=== PATIENT | male | born 1955 | race Caucasian/White ===

== ENCOUNTER 2016-11-29 14:09 | Emergency (ER) | payer SELFPAY ==
--- NOTE | 2016-11-29 15:01 | DIAGNOSTIC IMAGING REPORT ---
PROCEDURE: XR CHEST 2 VIEW INDICATION: SOB TECHNIQUE: PA and lateral views. COMPARISON: None. FINDINGS: Extensive bibasilar infiltrates. Heart and mediastinum are normal. Thorax is normal. IMPRESSION: 1. Diffuse bibasilar infiltrates.
--- NOTE | 2016-11-29 16:37 | DIAGNOSTIC IMAGING REPORT ---
PROCEDURE: CTA THORAX WITH CONTRAST INDICATION: SOB, ELEVATED D-DIMER TECHNIQUE: 96 ml of Isovue 370 was injected intravenously and axial images were obtained of the chest with 3D sagittal and coronal MIP reconstructions. COMPARISON: None. FINDINGS: The ascending aorta is of normal caliber. There is a [place] type B aortic dissection originating immediately distal to the left subclavian artery origin. The dissection continues into the upper abdomen and a dissection flap is seen coursing down the proximal aspect of the right renal artery. The left renal artery origin arises from the false lumen. The celiac trunk and superior mesenteric arteries arise from the true lumen. The pulmonary arteries are grossly normal in course and caliber without evidence of central thrombus. There is trace pericardial thickening. The heart size is within normal limits. No significant effusion. There are mildly enlarged mediastinal lymph nodes in the AP window, pretracheal, precarinal, subcarinal, and right hilar regions. The airway is patent and branches normally. Lung parenchyma demonstrates a diffusely thickened interstitium and multifocal patchy ground-glass alveolar opacities, mainly centralized. These findings are superimposed on tiny parenchymal central lobular cystic/emphysematous changes. There is thickening of the fissures bilaterally. Very small posteromedial layering pleural effusions. The liver size is at the upper limits of normal and contains multiple small scattered hypodensities in both lobes, incompletely evaluated. No suspicious osseous lesions. IMPRESSION: 1. [place] type B aortic dissection. The distal extent was not imaged. Correlate clinically with femoral pulses. 2. Dissection extends into the proximal right renal artery. Left renal artery origin arises from the false lumen. 3. Extensive bilateral upper and lower lobe centralized ground-glass parenchymal opacities and diffuse thickening of the interstitium suggestive of interstitial and pulmonary edema. Trace bilateral effusion. 4. Mediastinal and right hilar adenopathy. 5. No large central pulmonary embolus. 6. Mild emphysema. 7. Multiple small hepatic hypodensities, incompletely evaluated. 8. Discussed with Dr. Sharma in the emergency room.
--- NOTE | 2016-11-29 16:57 | ED ORDER SUMMARY ---
..... Patient: ROB PIERCE OrderSheet [facility] VisitID: [id number] Casey Montes [id number] 61y, M Registration Date/Time: 11/29/2016 ORDER SHEET Weight: 102.0 kg (stated) Allergies: No Known Drug Allergy GENERAL ORDERS: Chest 2V Urgent (14:36 11/29/2016 Mars Stewart) (Ack 14:42 Wendy) (14:55 EHassan R.N.) Nuclear Test Technician (Continuous) (SOB) (14:36 11/29/2016 Mars Stewart) (14:41 EHstacyn R.N.) CBC w Diff Urgent (14:36 11/29/2016 Mars Stewart) (Ack 14:42 Wendy) (14:55 EHmarixa R.N.) CMP Urgent (14:36 11/29/2016 Mars Stewart) (Ack 14:42 Wendy) (14:55 EHstacyn R.N.) PT with INR Urgent (14:36 11/29/2016 Mars Stewart) (Ack 14:42 Wendy) (14:55 Hal R.N.) UA-Culture if indicated Urgent (14:36 11/29/2016 Mars Stewart) (Ack 14:42 Wendy) (16:50 Pierce R.N.) D-Dimer Urgent (14:36 11/29/2016 Mars Stewart) (Ack 14:42 Wendy) (14:55 Edilsonn R.N.) Troponin-I Urgent (14:36 11/29/2016 Mars Stewart) (Ack 14:42 Wendy) (14:55 Hal R.N.) BNP Urgent (14:36 11/29/2016 Mars Stewart) (Ack 14:42 Wendy) (14:55 EHassan R.N.) Pulse oximeter (14:36 11/29/2016 Mars Stewart) (14:41 EHmarixa R.N.) Blood Culture (No) (N/A) Urgent (15:05 11/29/2016 Mars Stewart) (Ack 15:25 KHoerner) (15:27 KHoerner) Lactate, Serum Urgent (15:05 11/29/2016 Mars Stewart) (Ack 15:25 KHoerner) (15:27 KHoerner) PCT (Procalcitonin) Urgent (15:05 11/29/2016 Mars Stewart) (Ack 15:25 KHoerner) (15:27 KHoerner) CTA Thorax w Cont (No) (gfr > 60) Urgent (15:31 11/29/2016 Mars Stewart) (Ack 15:33 KHoerner) (16:15 MCampbell) Type & Screen Urgent (16:10 11/29/2016 Mars Stewart) (Ack 16:19 KHoerner) (17:58 EHassan R.N.) MEDICATION ORDERS: DuoNeb Neb Tx 1 unit dose (NOW) (14:36 11/29/2016 Mars Stewart) (14:49 MNance) NitroGLYCERIN SL 0.4 mg (once now) (15:06 11/29/2016 Mars Stewart) (15:29 KPachester-Deangelo R.N.) IV FLUIDS: Labetalol IV 20 mg (HIGH ALERT MEDICATION, NOW) (14:36 11/29/2016 Mars Stewart) (14:56 EHassan R.N.) (Cancelled: not [id number] Mars Stewart) IV Saline Lock (14:36 11/29/2016 Mars Stewart) (15:06 EHassan R.N.) Morphine IV 4 mg (HIGH ALERT MEDICATION, NOW) (15:32 11/29/2016 Mars Stewart) (15:50 EHassan R.N.) Labetalol IV 20 mg (HIGH ALERT MEDICATION, NOW) (16:03 11/29/2016 Mars Stewart) (16:24 KPaRebecca R.N.) Labetalol IV 2 mg/min (now, continuous. may titrate up to 8 mg min max. goal SBP 120 - 100) (16:37 11/29/2016 Mars Stewart) (Cancelled: Other17:58 EHassan R.N.) Esmolol Drip IV : initial bolus 500 mcg/kg, then 50 mcg/kg/min for as long as needed (NOW, TITRATE) (max drip 300 mcg/kg/min) (16:54 11/29/2016 Mars Stewart) (18:09 Hal Clark) ORDER SHEET NOTES: [Electronically signed by Radha Smith R.N. (18:37 11/29/2016)] [Electronically signed by Jovon Sharma Dr. (12:25 11/30/2016)] [Electronically locked/signed by Radha Smith R.N. (18:37 11/29/2016)]
--- NOTE | 2016-11-29 16:57 | ED ORDER SUMMARY ---
..... Patient: ROB PIERCE OrderSheet [facility] VisitID: [id number] [place] [address] 61y, M Registration Date/Time: 11/29/2016 ORDER SHEET Weight: 102.0 kg (stated) Allergies: No Known Drug Allergy GENERAL ORDERS: Chest 2V Urgent (14:36 11/29/2016 Mars Stewart) (Ack 14:42 Wendy) (14:55 EHassan R.N.) Emergency Medcl Emt (Continuous) (SOB) (14:36 11/29/2016 Mars Stewart) (14:41 EHstacyn R.N.) CBC w Diff Urgent (14:36 11/29/2016 Mars Stewart) (Ack 14:42 Wendy) (14:55 EHmarixa R.N.) CMP Urgent (14:36 11/29/2016 Mars Stewart) (Ack 14:42 Wendy) (14:55 EHstacyn R.N.) PT with INR Urgent (14:36 11/29/2016 Mars Stewart) (Ack 14:42 Wendy) (14:55 Hal R.N.) UA-Culture if indicated Urgent (14:36 11/29/2016 Mars Stewart) (Ack 14:42 Wendy) (16:50 Pierce R.N.) D-Dimer Urgent (14:36 11/29/2016 Mars Stewart) (Ack 14:42 Wendy) (14:55 Edilsonn R.N.) Troponin-I Urgent (14:36 11/29/2016 Mars Stewart) (Ack 14:42 Wendy) (14:55 Hal R.N.) BNP Urgent (14:36 11/29/2016 Mars Stewart) (Ack 14:42 Wendy) (14:55 EHassan R.N.) Pulse oximeter (14:36 11/29/2016 Mars Stewart) (14:41 EHmarixa R.N.) Blood Culture (No) (N/A) Urgent (15:05 11/29/2016 Mars Stewart) (Ack 15:25 KHoerner) (15:27 KHoerner) Lactate, Serum Urgent (15:05 11/29/2016 Mars Stewart) (Ack 15:25 KHoerner) (15:27 KHoerner) PCT (Procalcitonin) Urgent (15:05 11/29/2016 Mars Stewart) (Ack 15:25 KHoerner) (15:27 KHoerner) CTA Thorax w Cont (No) (gfr > 60) Urgent (15:31 11/29/2016 Mars Stewart) (Ack 15:33 KHoerner) (16:15 MCampbell) Type & Screen Urgent (16:10 11/29/2016 Mars Stewart) (Ack 16:19 KHoerner) (17:58 EHassan R.N.) MEDICATION ORDERS: DuoNeb Neb Tx 1 unit dose (NOW) (14:36 11/29/2016 Mars Stewart) (14:49 MNance) NitroGLYCERIN SL 0.4 mg (once now) (15:06 11/29/2016 Mars Stewart) (15:29 KPachester-Deangelo R.N.) IV FLUIDS: Labetalol IV 20 mg (HIGH ALERT MEDICATION, NOW) (14:36 11/29/2016 Mars Stewart) (14:56 EHassan R.N.) (Cancelled: not [id number]:54 Mars Stewart) IV Saline Lock (14:36 11/29/2016 Mars Stewart) (15:06 EHassan R.N.) Morphine IV 4 mg (HIGH ALERT MEDICATION, NOW) (15:32 11/29/2016 Mars Stewart) (15:50 EHassan R.N.) Labetalol IV 20 mg (HIGH ALERT MEDICATION, NOW) (16:03 11/29/2016 Mars Stewart) (16:24 KPaRebecca R.N.) Labetalol IV 2 mg/min (now, continuous. may titrate up to 8 mg min max. goal SBP 120 - 100) (16:37 11/29/2016 Mars Stewart) (Cancelled: Other17:58 EHassan R.N.) Esmolol Drip IV : initial bolus 500 mcg/kg, then 50 mcg/kg/min for as long as needed (NOW, TITRATE) (max drip 300 mcg/kg/min) (16:54 11/29/2016 Mars Stewart) (18:09 Hal Clark) ORDER SHEET NOTES: [Electronically signed by Radha Smith R.N. (18:37 11/29/2016)] [Electronically signed by Jovon Sharma Dr. (12:25 11/30/2016)] [Electronically locked/signed by Radha Smith R.N. (18:37 11/29/2016)]
--- NOTE | 2016-11-29 16:57 | ED NURSING NOTES ---
Clinical Report - Nurses [facility] [address] [place] [address] 11/29/2016 14:12 Patient: ROB PIERCE TRIAGE Triage time 1415 PM. Acuity: LEVEL 2. Chief Complaint: DIZZINESS, WEAKNESS, DIARRHEA and ABDOMINAL PAIN. Alert. No acute distress. JEFFREY COMA SCORE: [place] Coma Scale: 15- eyes open spontaneously (4); best verbal response- oriented x 4 (5); best motor response- obeys commands (6). --14:33 Radha Smith R.N. 14:18 11/29/16. BP: 205/128 (regular adult cuff) taken on the left arm, via an automated monitor, while lying. HR: 111. RR: 14. O2 saturation: 95% on room air. Pain level now: 01/04. --14:33 Radha Smith R.N. late entry - 14:18 PM. --18:37 Radha Smith R.N. 14:18 11/29/16. Temp: 98.2 F (oral). --18:37 Radha Smith R.N. Weight: 102 kg stated. Height/Length: 69 inches Per Patient. BMI: 33.2. --14:17 Radha Smith R.N. Medications None. --18:35 Radha Smith R.N. Medication/allergy information source: the patient. --14:33 Radha Smith R.N. Allergies No Known Drug Allergy. --18:35 Radha Smith R.N. History Arrived by private vehicle. Historian: patient. Accompanied by family. Primary physician (none). ( Pt states for the past couple of days approximately 3 days has been SOB on exertion and also while resting, pt also states that has felt his heart racing and the feeling of "passing out" with exertion (while putting on his shirt). Pt has not been to the doctor in a very "long time". Here for evaluation). Onset. (3 days). He has had fever, weakness, a cough and difficulty breathing. Denies muscle aches. No skin rash. 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 PAST MEDICAL HX: Immunizations: status is unknown. SOCIAL HX: Light tobacco smoker (cigarette)- less than 1/2 a pack per day. Alcohol use. Patient is a recovering alcoholic. (in 1985). History of drug use: marijuana. Is a recovering addict. (1 months). No infectious disease exposure. ABUSE ASSESSMENT: No report of abuse. SELF HARM ASSESSMENT: A self harm assessment was performed. The patient answered "no" to the question "Do you have thoughts of harming or killing yourself?" and "Have you recently had thoughts about harming or killing others?". FALL RISK ASSESSMENT: Fall risk assessment completed. No fall risk identified. NUTRITIONAL RISK ASSESSMENT: The nutritional risk assessment revealed no deficiencies. FUNCTIONAL ASSESSMENT: Functional assessment: no impairments noted. LEARNING NEEDS ASSESSMENT: The learning needs assessment revealed no barriers. SKIN INTEGRITY ASSESSMENT: Skin integrity risk assessment completed. No skin integrity risk identified. --14:33 Radha Smith R.N. 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 Gastroesophageal Reflux Disease. Back Pain. --14:22 Radha Smith R.N. ADDITIONAL SURGERIES: no known surgeries. Interventions ID band on patient. --14:33 Radha Smith R.N. PHYSICAL ASSESSMENT Ambulatory to room. GENERAL / NEURO / PSYCH: Alert. Oriented X 4. Appears in no acute distress. HEENT: Pupils equal, round and reactive to light. No facial asymmetry noted. Mucous membranes are pink. RESPIRATORY: Respirations not labored. Decreased breath sounds in the bases bilaterally. Inspiratory bilateral wheezes in the bases. CVS: Capillary refill less than 2 seconds. Pulses within normal limits. GI / : Abdomen soft and nontender and normal bowel sounds. SKIN: Skin intact. Skin is warm and dry. Normal skin turgor. --14:33 Radha Smith R.N. NURSING PROGRESS NOTES 14:24 11/29/2016 Site #1 started via IV in the left antecubital space with an 18g angiocath. Blood drawn: rainbow set. Labeled in the presence of the patient. --14:35 Radha Smith R.N. 14:33 11/29/16. BP: 196/122. HR: 104. RR: 19 (regular and labored). O2 saturation: 91%. Temp: 98.5 F (oral). Pain level now: 01/04. --14:35 Radha Smith R.N. Cardiac rhythm: sinus tachycardia. The initial plan of care for this patient has been created This plan of care was discussed with the patient. shelter monitor, pulse oximeter and NIBP monitor placed on patient. EKG time: (1430 PM). Patient ID band checked for patient name, birthdate and medical record number: patient confirmed. Blood samples drawn from the left antecubital space peripheral IV site by nurse per protocol ; labeled in presence of the patient: rainbow set. Patient gowned. Head of bed elevated 45 degrees. Reassurance given. Two patient identifiers checked. Call light placed in reach. Side rails up x 1. Bed placed in lowest position. Brakes of bed on. --14:35 Radha Smith R.N. 14:49 11/29/2016 Duoneb (Ipratropium-Albuterol) Neb TX Nebulizer 1 unit dose given. --14:49 Braulio Davis 14:56 11/29/2016 Labetalol IVP 20 mg given over 5 minute(s) via site #1. Allergies verified and confirmed 5 rights. IV patency established. IV site checked: no pain, redness, or swelling. IV flushed thoroughly pre- and post-medication administration. IVP given by RN. --14:56 Radha Smith R.N. 14:56 11/29/16. BP: 190/108. HR: 108. RR: 18. O2 saturation: 95% on room air. Pain level now: 01/04. --14:59 Radha Smith R.N. Cardiac rhythm: sinus tachycardia. shelter monitor, pulse oximeter and NIBP monitor placed on patient. Reassurance given. Reassessment after medication administered. He has had no adverse reaction. RESPIRATORY: Breath sounds normal. CVS: Denies chest pain. Normal sinus rhythm noted. Cardiac rhythm: sinus tachycardia. SKIN: Skin is warm and dry. Skin color within normal limits. Two patient identifiers checked. Call light placed in reach. --14:59 Radha Smith R.N. 15:00 11/29/16. BP: 181/103. HR: 84. RR: 16. O2 saturation: 92% on room air. Pain level now: 02/04. --15:01 Radha Smith R.N. Cardiac rhythm: normal sinus rhythm. The patient has had no adverse reaction. RESPIRATORY: Denies difficulty breathing. CVS: Denies chest pain. --15:01 Radha Smith R.N. 15:03 11/29/16. BP: 174/107 (regular adult cuff) taken on the left arm, via an automated monitor, while lying. HR: 79. RR: 18. O2 saturation: 88% on room air. Pain level now: 02/04. Additional comments: placed on O2. --15:04 Radha Smith R.N. Cardiac rhythm: normal sinus rhythm. Oxygen administered by nasal cannula at 2 liters. Monitoring of patient in place. Reassurance given. The patient has had no adverse reaction. Patient identifiers checked. Call light placed in reach. --15:04 Radha Smith R.N. Cardiac rhythm: normal sinus rhythm. --15:05 Radha Smith R.N. 15:05 11/29/16. BP: 167/103 taken on the left arm, via an automated monitor, while lying. HR: 77 (regular). RR: 14. O2 saturation: 93%. Pain level now: 02/04. --15:05 Radha Smith R.N. 15:08 11/29/2016 Labetalol IVP Response: no adverse reaction. --15:08 Radha Smith R.N. 15:19 11/29/2016 Nitroglycerin SL Tablets 0.4 mg given. Allergies verified and confirmed 5 rights. --15:29 Patricio Mendoza R.N. Blood samples drawn from the right hand with 23g butterfly: blood culture (2nd set). --15:39 Lia Deleon ER Tech1 ( pt to CT with tech, on O2, family at bedside,). --15:49 Patricio Mendoza R.N. 15:40 11/29/2016 Morphine IVP 4 mg given over 2 minute(s) via site #1. Allergies verified, confirmed 5 rights and sedative warning given to the patient. IV patency established. IV site checked: no pain, redness, or swelling. IV flushed thoroughly pre- and post-medication administration. IVP given by RN. --15:50 Radha Smith R.N. 16:05 11/29/16. BP: 184/121. HR: 93. RR: 19. O2 saturation: 89%. End tidal CO2: 21mmHg. Pain level now 0/10. --16:11 Patricio Mendoza R.N. Cardiac rhythm: normal sinus rhythm. shelter monitor, pulse oximeter, end tidal CO2 monitor and NIBP monitor placed on patient; cardiac tech- Lead II and V5; monitor alarms on. ( pt moved to room one after CT, MD at bedside explaining results of CT, that plan will be to transfer pt out to another facility. 2nd line being established, pt remaining on monitor, family also at bedside, pt in SR in the 90's on the monitor,). --16:11 Patricio Mendoza R.N. 16:18 11/29/16. BP: 186/124. HR: 98. --16:20 Patricio Mendoza R.N. ( labetalol being given ivp by Tessa ROTH, pt being 1:1 minimum RN to PT, S/O calling pts family to notify them). --16:20 Patricio Mendoza R.N. Cardiac rhythm: no ectopy noted (SR no ectopy noted at this time on monitor). --16:20 Patricio Mendoza R.N. 16:20 11/29/16. BP: 188/121. HR: 94. --16:20 Patricio Mendoza R.N. ( O2 increased to 4L/NC to maintain sats grtr than 94%). --16:22 Patricio Mendoza R.N. 16:21 11/29/16. BP: 175/111. HR: 88. RR: 21. End tidal CO2: 23mmHg. --16:22 Patricio Mendoza R.N. ( pt cont to deny pain, pulses pedal and radial + and regular, BP Q 5 minutes , pt remains in a SR on monitor no ectopy noted). --16:23 Patricio Mendoza R.N. 16:14 11/29/2016 Morphine IVP Response: no adverse reaction pain is gone now. --16:24 Patricio Mendoza R.N. 16:19 11/29/2016 Labetalol IVP 20 mg given. via site #1. Allergies verified and confirmed 5 rights. IV patency established. IV site checked: no pain, redness, or swelling. IV flushed thoroughly pre- and post-medication administration. IVP given by RN. --16:24 Patricio Mendoza R.N. 16:26 11/29/16. BP: 172/110. HR: 84. RR: 19. O2 saturation: 93%. Pain level now 0/10. --16:27 Patricio Mendoza R.N. Cardiac rhythm: (SR). Reassurance given to the patient and patient's family (S/O at bedside calling family). Call light placed in reach. Side rails up x 2. Bed placed in lowest position. Brakes of bed on. Patient waiting for transfer (to [facility]). 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 on phone with [facility] making arrangements for transfer out). --16:27 Patricio Mendoza R.N. ( Pads placed on pt). --16:30 Patricio Mendoza R.N. ( last PO intake at 1100 today). --16:33 Patricio Mendoza R.N. 16:33 11/29/16. BP: 177/114. HR: 84. O2 saturation: 94%. --16:34 Patricio Mendoza R.N. 16:34 11/29/16. BP: 168/115. HR: 86. RR: 19. O2 saturation: 94% on nasal cannula at 4 liters/minute. End tidal CO2: 25 mmHg. Pain level now: 0/10. Additional comments: 168/115 left arm, 179/110 right arm. --16:37 Patricio Mendoza R.N. Call light placed in reach. Side rails up x 2. Bed placed in lowest position. Brakes of bed on. --16:39 Patricio Mendoza R.N. ( labetalol drip ordered from pharmacy, updated on pts bp and hr following 2nd ivp labetalol). --16:40 Patricio Mendoza R.N. ( order faxed to pharmacy for labetalol gtt). --16:42 Patricio Mendoza R.N. ( daughter arrived at bedside). --16:42 Patricio Mendoza R.N. 16:42 11/29/16. BP: 185/119. HR: 89. RR: 19. Pain level now 0/10. --16:42 Patricio Mendoza R.N. 16:28 11/29/2016 Site #2 started via IV in the right antecubital space with an 18g angiocath. Blood drawn. Labeled in the presence of the patient and sent to the lab. Saline lock flushed with 10 mL saline (T/C sent to lab). --16:53 Patricio Mendoza R.N. Reassurance given. --16:53 Patricio Mendoza R.N. ( spoke with Pharmacist Migdalia to confirm dosing of esmolol). --17:06 Patricio Mendoza R.N. 17:09 11/29/16. BP: 173/110. HR: 86. O2 saturation: 94% on nasal cannula at 4 liters/minute. O2 started via nasal cannula. --17:09 Patricio Mendoza R.N. ( pulse check to extremities, + pedal and radial, pedals marked, eta for airlift 1715- family updated). --17:11 Patricio Mendoza R.N. ( esmolol bolus infusing as ordered, gtt up on pump.). --17:12 Patricio Mendoza R.N. 17:12 11/29/16. BP: 171/108. HR: 85. O2 saturation: 92%. Pain level now 0/10. --17:13 Patricio Mendoza R.N. Cardiac rhythm: no ectopy noted (SR, no ectopy noted on monitor). --17:13 Patricio Mendoza R.N. Reassurance given to the patient and patient's family (spouse Zeenat and daughter Chloe and grandchildren at bedside). Call light placed in reach. Side rails up x 1. Bed placed in lowest position. Brakes of bed on. Care transferred and report given (faxed to [facility] ED by EDT). --17:14 Patricio Mendoza R.N. ( bolus complete, ivp by primary RN Radha). --17:14 Patricio Mendoza R.N. 17: 11/29/16. Reassessment after medication administered. --17:15 Patricio Mendoza R.N. --17:58 Patricio Mendoza R.N. 17:29 11/29/16. BP: 167/116 taken on the left arm, via an automated monitor, while lying. HR: 83. 17:29 11/29/16. BP: 162/114 taken on the right arm, manually, while lying. HR: 82. 17:12 11/29/16. BP: 171/108. HR: 85. O2 saturation: 92%. Pain level now 0/10. 17:09 11/29/16. BP: 173/110. HR: 86. O2 saturation: 94% on nasal cannula at 4 liters/minute. O2 started via nasal cannula. 16:42 11/29/16. BP: 185/119. HR: 89. RR: 19. Pain level now 0/10. 16:34 11/29/16. BP: 168/115. HR: 86. RR: 19. O2 saturation: 94% on nasal cannula at 4 liters/minute. End tidal CO2: 25 mmHg. Pain level now: 0/10. Additional comments: 168/115 left arm, 179/110 right arm. 16:33 11/29/16. BP: 177/114. HR: 84. O2 saturation: 94%. 16:26 11/29/16. BP: 172/110. HR: 84. RR: 19. O2 saturation: 93%. Pain level now . 16:21 11/29/16. BP: 175/111. HR: 88. RR: 21. End tidal CO2: 23mmHg. 16:20 11/29/16. BP: 188/121. HR: 94. 16:18 11/29/16. BP: 186/124. HR: 98. 16:11/29/16. BP: 184/121. HR: 93. RR: 19. O2 saturation: 89%. End tidal CO2: 21mmHg. Pain level now . 15:05 11/29/16. BP: 167/103 taken on the left arm, via an automated monitor, while lying. HR: 77 (regular). RR: 14. O2 saturation: 93%. Pain level now: 02/04. 15:03 11/29/16. BP: 174/107 (regular adult cuff) taken on the left arm, via an automated monitor, while lying. HR: 79. RR: 18. O2 saturation: 88% on room air. Pain level now: 02/04. Additional comments: placed on O2. 15:00 11/29/16. BP: 181/103. HR: 84. RR: 16. O2 saturation: 92% on room air. Pain level now: 02/04. 14:56 11/29/16. BP: 190/108. HR: 108. RR: 18. O2 saturation: 95% on room air. Pain level now: 01/04. 14:33 11/29/16. BP: 196/122. HR: 104. RR: 19 (regular and labored). O2 saturation: 91%. Temp: 98.5 F (oral). Pain level now: 01/04. 14:18 11/29/16. BP: 205/128 (regular adult cuff) taken on the left arm, via an automated monitor, while lying. HR: 111. RR: 14. O2 saturation: 95% on room air. Pain level now: 01/04. --17:58 Patricio Mendoza R.N. 17:31 11/29/16. BP: 158/105. HR: 84. RR: 19. Pain level now: 11/04. Additional comments: t was given a total of 75mcg of fentanyl by [facility] which decreased pts pain upon dc to 310, remained in his back. --18:02 Patricio Mendoza R.N. 17:32 11/29/16. Temp: 98.5 F. --18:05 Patricio Mendoza R.N. 17:02 11/29/2016 Started 2500 mcg of Esmolol (Esmolol HCl) Drip IV in bag #1 82271 mL; bolus of 500 mcg over 1 minute(s) then at 50 mcg/kg/min over 8 hour(s) via site #1 via IV pump. Allergies verified and confirmed 5 rights. IV patency established. IV site checked: no pain, redness, or swelling. IV flushed thoroughly pre- and post-medication administration. --18:09 Radha Smith R.N. 17:16 11/29/16. ( [facility] arrived, RNs Gina and Deepa). --17:50 Patrciio Mendoza R.N. 17:18 11/29/16. ( pt began complaining of back pain 01/04, [facility] gave 25mcg fentanyl ivp). --17:52 Patricio Mendoza R.N. 17:23 11/29/16. ( alnw gave 2nd bolus of esmolol- again bilat bps obtained and equal with systolic 160's). --17:54 Patricio Mendoza R.N. 17:29 11/29/16. ( esmolol gtt inc to 100mcg). --18:03 Patricio Mendoza R.N. 17:29 11/29/16. ( pt given 50 mcg ivp fentanyl by [facility] (total of 75mcg) 01/04 "in my back, I think if I could just move it would help"). --18:04 Patricio Mendoza R.N. 17:29 11/29/2016 Started of Esmolol (Esmolol HCl) Drip IV; bolus of 500 mcg over 1 minute(s) then at 100 mcg/kg/min over 8 hour(s) via site #1 via IV pump. Allergies verified and confirmed 5 rights. IV patency established. IV site checked: no pain, redness, or swelling. IV flushed thoroughly pre- and post-medication administration. --18:10 Radha Smith R.N. 17:30 11/29/2016 Started 100 mcg of Esmolol (Esmolol HCl) Drip IV in bag #1 2500 mL; bolus of 500 mcg over 1 minute(s) then at 100 mcg/kg/min over 8 hour(s) via site #1 via IV pump. Allergies verified and confirmed 5 rights. IV patency established. IV site checked: no pain, redness, or swelling. IV flushed thoroughly pre- and post-medication administration. --18:13 Radha Smith R.N. 17:31 11/29/16. ( pt given 1mg of ativan ivp by alnw). --18:05 Patricio Mendoza R.N. 17:32 11/29/16. ( zofran 4mg ivp given by alnw). --18:05 Patricio Mendoza R.N. DISPOSITION / DISCHARGE 17:40 11/29/2016 Site #2 reassessed; patent, infusing well and no signs of infection or infiltration. Line flushed with saline. Good blood return present. --18:14 Radha Smith R.N. 17:40 11/29/2016 Site #1 reassessed; patent, line flushes easily, infusing well and no signs of infection or infiltration. Line flushed with saline. Good blood return present. --18:15 Radha Smith R.N. Cardiac rhythm: normal sinus rhythm. Departure time: 1750 PM. Condition at departure: stable and critical. The goals identified in the patient's plan of care were met. Transferred to [facility]. Summary of care provided to transport team and family via paper and fax (1750 PM). Transported via helicopter by nurse and transport team with monitor, IV, O2 and emergency medications. Report was given to a nurse via a fax. Report included patient's care, treatment, medications, reviewed medication reconcilliation, and condition (including any recent changes or anticipated changes). All questions were answered. Report was acknowledged and care was transferred. (RN Isma/Deepa and Gina -transport team). ( Pt stable, placed on Esmolol for elevated BP's in the 170-180's/ 110 bolus and tolerated well. Transport team at bedside, report given, faxed report sent over, VSS and maintaining). Patient's personal items include: glasses, jewelry, wallet and cell phone; items were placed in belongings bag and given to the spouse. FALL RISK ASSESSMENT: Fall risk assessment completed. No fall risk identified. JEFFREY COMA SCORE: [place] Coma Scale: 15- eyes open spontaneously (4); best verbal response- oriented x 4 (5); best motor response- obeys commands (6). --18:34 Radha Smith R.N. 17:45 11/29/16. BP: 158/105 (regular adult cuff) taken on the left arm, via an automated monitor, while lying. HR: 86 (regular). RR: 16. O2 saturation: 91% on nasal cannula at 6 liters/minute. Temp: 98.5 F (oral). Pain level now: 12/05. --18:34 Radha Smith R.N. Locked/Released at 11/29/2016 18:37 by Radha Smith R.N.
--- NOTE | 2016-11-29 16:57 | ED CLINICAL REPORT ---
Clinical Report - Physicians/Mid Levels [facility] [address] [place] [address] 11/29/2016 14:12 Patient: ROB PIERCE Time Seen: 1429. Arrived- By private vehicle. Historian- patient. HISTORY OF PRESENT ILLNESS Chief Complaint: DYSPNEA. This started past several days and is still present and worsening. It was abrupt in onset and has been constant but is not gone now. The dyspnea is described as moderate and is worsened by exertion and is improved by rest. The patient has had a cough. No chest pain, calf pain or foot swelling. Similar symptoms previously: None. Recent medical care: Not recently seen/assessed. REVIEW OF SYSTEMS The patient has had skin rash. All systems otherwise negative, except as recorded above. PAST HISTORY See nurses notes. Additional Surgeries: no known surgeries. Medications: None. Allergies: No Known Drug Allergy. SOCIAL HISTORY Never smoker. No alcohol use or drug use. Recent travel. Is a local resident. ADDITIONAL NOTES The nursing notes have been reviewed. PHYSICAL EXAM Vital Signs: 11/29/2016 14:18 BP: 205/128. HR: 111. RR: 14. O2 saturation: 95%. Pain level now: 5/10. Hypertensive. Oxygen saturation low. Appearance: Alert. No acute distress. Eyes: Pupils equal, round and reactive to light. Eyes normal inspection. ENT: Ears normal. Nose normal. Pharynx normal. Uvula midline. Neck: Normal inspection. No jugular venous distention. Neck supple. No JVD. CVS: Normal heart rate and rhythm. Heart sounds normal. Pulses normal. (pulses at the radial, femoral, and carotids are 2+ and symmetrical the the contra-lateral side). Respiratory: Mild respiratory distress. Expiratory mild bilateral wheezes in the bases. Mild bilateral rhonchi present in the bases. Mild rales present in the bases bilaterally. Abdomen: Soft and nontender. No organomegaly. (femoral pulses are equal and bilateral). Back: Normal inspection. Skin: Skin warm and dry. Normal skin color. No rash. Normal skin turgor. Extremities: Extremities exhibit normal ROM. No lower extremity edema. LABS, X-RAYS, AND EKG EKG: Narrow-complex tachycardia (107). Sinus tachycardia. Normal P waves. Normal CHACHA. Normal QRS complex. Normal axis. Abnormal ST/T waves. Normal QT and QTc. T wave flattening in lead V2. No ST elevation or depression. Prior EKG unavailable. The study has been interpreted contemporaneously. The study has been independently viewed by me. The EKG appears to be a good tracing. I do not agree with or confirm the computer reading of the EKG. Chest X-ray: (PROCEDURE: XR CHEST 2 VIEW INDICATION: SOB TECHNIQUE: PA and lateral views. COMPARISON: None. FINDINGS: Extensive bibasilar infiltrates. Heart and mediastinum are normal. Thorax is normal. IMPRESSION: 1. Diffuse bibasilar infiltrates.). Chest CT: (PROCEDURE: CTA THORAX WITH CONTRAST INDICATION: SOB, ELEVATED D-DIMER TECHNIQUE: 96 ml of Isovue 370 was injected intravenously and axial images were obtained of the chest with 3D sagittal and coronal MIP reconstructions. COMPARISON: None. FINDINGS: The ascending aorta is of normal caliber. There is a Arpit type B aortic dissection originating immediately distal to the left subclavian artery origin. The dissection continues into the upper abdomen and a dissection flap is seen coursing down the proximal aspect of the right renal artery. The left renal artery origin arises from the false lumen. The celiac trunk and superior mesenteric arteries arise from the true lumen. The pulmonary arteries are grossly normal in course and caliber without evidence of central thrombus. There is trace pericardial thickening. The heart size is within normal limits. No significant effusion. There are mildly enlarged mediastinal lymph nodes in the AP window, pretracheal, precarinal, subcarinal, and right hilar regions. The airway is patent and branches normally. Lung parenchyma demonstrates a diffusely thickened interstitium and multifocal patchy ground-glass alveolar opacities, mainly centralized. These findings are superimposed on tiny parenchymal central lobular cystic/emphysematous changes. There is thickening of the fissures bilaterally. Very small posteromedial layering pleural effusions. The liver size is at the upper limits of normal and contains multiple small scattered hypodensities in both lobes, incompletely evaluated. No suspicious osseous lesions. IMPRESSION: 1. Arpit type B aortic dissection. The distal extent was not imaged. Correlate clinically with femoral pulses. 2. Dissection extends into the proximal right renal artery. Left renal artery origin arises from the false lumen. 3. Extensive bilateral upper and lower lobe centralized ground-glass parenchymal opacities and diffuse thickening of the interstitium suggestive of interstitial and pulmonary edema. Trace bilateral effusion. 4. Mediastinal and right hilar adenopathy. 5. No large central pulmonary embolus. 6. Mild emphysema. 7. Multiple small hepatic hypodensities, incompletely evaluated.). Chest CT performed with contrast. The study was independently viewed by me, interpreted by the radiologist and discussed with the radiologist. Laboratory Tests: CBC w Diff: (ASIYA: 11/29/2016 14:30) ( MsgRcvd 11/29/2016 15:03) Final results Test Result Flag Units (Reference) WHITE BLOOD COUNT 11.3 K/uL (4.5-11.5) RED BLOOD COUNT 4.47 L M/uL (4.50-5.90) HEMOGLOBIN 12.9 L gm/dL (13.5-17.5) HEMATOCRIT 38.8 L % (41.0-53.0) MEAN CELL VOLUME 87 fL (80-100) MEAN CORPUSCULAR HGB 29 pg (26-34) MEAN CORPUSCULAR HGB CONC 33 g/dL (31-37) RED CELL DISTRIBUTION WIDTH 13.3 % (11.6-14.8) PLATELET COUNT 428 H K/uL (150-400) NEUTROPHIL % 79.8 H % (50-75) LYMPH % 13.3 L % (25-40) MONO % 6.1 % (3-14) EOSINOPHIL % 0.3 % (0-4) BASOPHIL % 0.5 % (0-2) . PROGRESS AND PROCEDURES Course of Care: the patient is a pleasant 61-year-old male presenting for evaluation shortness of breath. Lungs with wheezing and crackles at the bases. Differential diagnosis at this time includes pulmonary embolism, congestive heart failure exacerbation, acute myocardial infarction, ThoracicAA and pneumonia. patient does not have any chest pain reportedly however does have some epigastric discomfort. Patient will be evaluated wiith laboratory studies including d-dimer, chest x-ray, EKG, CBC BMP, troponin, and CMP. Patient is agreeable to the treatment and plan. Patient is currently declining offers of pain medication. DuoNeb for the wheezing will be provided. Patient's workup was remarkable for bilateral patchy infiltrates which would suggestcongestive heart failure exacerbation. Patient's BNP is also noted to be elevated. Because of this, patient will be givenmorphine as well as sublingual nitroglycerin. Patient's blood pressure is noted to bealso significantly elevated and indications to lower the patient's blood pressure is also been provided. The patient's troponin is noted to be negative. Patient's d-dimer however is elevated. Because of the patient's elevated d-dimer, CT scan of the patient's chest with contrast forPE evaluation will be ordered. Patient is agreeable to treatment plan. I was notified by the transporter radiology as soon as the patient's scan was completed. There was concern for a thoracic aortic dissection. eye immediately went over to radiology to examine the patient's scan while the patient was still on the table. Patient does have adissecting aortic aneurysm. Patient was quickly brought back to the emergency department into the critical care room. Patient be aggressively managed with his blood pressure. of having long discussion with the patient he had not had medical attention for care for several years. Patient likely with severe undiagnosed hypertensionwithout treatment for years putting him at increased risk for having the dissection. Asked patient about the symptoms he was having today and it wasunusual the patient did not have any chest pain. Explained to patient that typically thepain distribution is in the chest and described as tearing and radiates to the back. After having a discussion with patient in regards to the symptoms, patient did reportthat maryjane remembers having some discomfort to the back that resolved spontaneously. Patient states that this was about5 days ago. Was able to contact [facility] after the findings noted on CT scan. Recommended patient be transferred to their facility for further management and monitoring. Recommendedblood control withmedicationsprovided on their website. The patient has had 2 doses of labetalol. We'll be starting patient on a labetalol drip. no labetalol was available in our facility at this time. Patient will be switched over to an esmolol drip. Had a long discussion with patient and his family in regards to the seriousness and severity of his condition and diagnosed here. Recommended to notify family of his condition. Because of the patient'ssevere abnormality, patient will be transported via air. It's approximately 5:00 at this point in time in the afternoon and transported by ground would besuboptimal. Informed written consent obtained. Patient's blood pressure has been slowly improving. Patient is currently ready for transport. Do not feelpatient needs to stay here in the emergency department for better control of his hypertension. [facility] and the patient would need to get treatmentimmediately there. Patient was transported without anyproblems. Patient's condition has not changed since he has been here. Pain is been well-controlled. Blood pressure has been improved as well asimprovement with his heart rate. Discussed with familyand patient his workup here in the emergency department including diagnosis and plan of care. All questions have been answered. The patient and family expressed understanding of these instructions and was agreeable to them. Critical care performed (70 minutes). Time is exclusive of separately billable procedures. Time includes: direct patient care, patient reassessment, coordination of patient care, interpretation of data (laboratory data), review of patient's medical records, medical consultation, family consultation regarding treatment decisions and documentation of patient care. Consult obtained. vascular surgery. Case discussed. Agree with treatment plan. Disposition: Transferred to [facility]. CLINICAL IMPRESSION Thoracic aortic dissection new-onset congestive heart failure bilateral pulmonary edema hypertensive emergency. (Electronically signed by Jovon Sharma Dr. 11/30/2016 12:25)
--- NOTE | 2016-11-29 16:57 | ED NURSING NOTES ---
Clinical Report - Nurses [facility] [address] [place] [address] 11/29/2016 14:12 Patient: ROB PIERCE TRIAGE Triage time 1415 PM. Acuity: LEVEL 2. Chief Complaint: DIZZINESS, WEAKNESS, DIARRHEA and ABDOMINAL PAIN. Alert. No acute distress. JEFFREY COMA SCORE: [place] Coma Scale: 15- eyes open spontaneously (4); best verbal response- oriented x 4 (5); best motor response- obeys commands (6). --14:33 Radha Smith R.N. 14:18 11/29/16. BP: 205/128 (regular adult cuff) taken on the left arm, via an automated monitor, while lying. HR: 111. RR: 14. O2 saturation: 95% on room air. Pain level now: 01/04. --14:33 Radha Smith R.N. late entry - 14:18 PM. --18:37 Radha Smith R.N. 14:18 11/29/16. Temp: 98.2 F (oral). --18:37 Radha Smith R.N. Weight: 102 kg stated. Height/Length: 69 inches Per Patient. BMI: 33.2. --14:17 Radha Smith R.N. Medications None. --18:35 Radha Smith R.N. Medication/allergy information source: the patient. --14:33 Radha Smith R.N. Allergies No Known Drug Allergy. --18:35 Radha Smith R.N. History Arrived by private vehicle. Historian: patient. Accompanied by family. Primary physician (none). ( Pt states for the past couple of days approximately 3 days has been SOB on exertion and also while resting, pt also states that has felt his heart racing and the feeling of "passing out" with exertion (while putting on his shirt). Pt has not been to the doctor in a very "long time". Here for evaluation). Onset. (3 days). He has had fever, weakness, a cough and difficulty breathing. Denies muscle aches. No skin rash. 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 PAST MEDICAL HX: Immunizations: status is unknown. SOCIAL HX: Light tobacco smoker (cigarette)- less than 1/2 a pack per day. Alcohol use. Patient is a recovering alcoholic. (in 1985). History of drug use: marijuana. Is a recovering addict. (1 months). No infectious disease exposure. ABUSE ASSESSMENT: No report of abuse. SELF HARM ASSESSMENT: A self harm assessment was performed. The patient answered "no" to the question "Do you have thoughts of harming or killing yourself?" and "Have you recently had thoughts about harming or killing others?". FALL RISK ASSESSMENT: Fall risk assessment completed. No fall risk identified. NUTRITIONAL RISK ASSESSMENT: The nutritional risk assessment revealed no deficiencies. FUNCTIONAL ASSESSMENT: Functional assessment: no impairments noted. LEARNING NEEDS ASSESSMENT: The learning needs assessment revealed no barriers. SKIN INTEGRITY ASSESSMENT: Skin integrity risk assessment completed. No skin integrity risk identified. --14:33 Radha Smith R.N. 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 Gastroesophageal Reflux Disease. Back Pain. --14:22 Radha Smith R.N. ADDITIONAL SURGERIES: no known surgeries. Interventions ID band on patient. --14:33 Radha Smith R.N. PHYSICAL ASSESSMENT Ambulatory to room. GENERAL / NEURO / PSYCH: Alert. Oriented X 4. Appears in no acute distress. HEENT: Pupils equal, round and reactive to light. No facial asymmetry noted. Mucous membranes are pink. RESPIRATORY: Respirations not labored. Decreased breath sounds in the bases bilaterally. Inspiratory bilateral wheezes in the bases. CVS: Capillary refill less than 2 seconds. Pulses within normal limits. GI / : Abdomen soft and nontender and normal bowel sounds. SKIN: Skin intact. Skin is warm and dry. Normal skin turgor. --14:33 Radha Smith R.N. NURSING PROGRESS NOTES 14:24 11/29/2016 Site #1 started via IV in the left antecubital space with an 18g angiocath. Blood drawn: rainbow set. Labeled in the presence of the patient. --14:35 Radha Smith R.N. 14:33 11/29/16. BP: 196/122. HR: 104. RR: 19 (regular and labored). O2 saturation: 91%. Temp: 98.5 F (oral). Pain level now: 01/04. --14:35 Radha Smith R.N. Cardiac rhythm: sinus tachycardia. The initial plan of care for this patient has been created This plan of care was discussed with the patient. triage technician, pulse oximeter and NIBP monitor placed on patient. EKG time: (1430 PM). Patient ID band checked for patient name, birthdate and medical record number: patient confirmed. Blood samples drawn from the left antecubital space peripheral IV site by nurse per protocol ; labeled in presence of the patient: rainbow set. Patient gowned. Head of bed elevated 45 degrees. Reassurance given. Two patient identifiers checked. Call light placed in reach. Side rails up x 1. Bed placed in lowest position. Brakes of bed on. --14:35 Radha Smith R.N. 14:49 11/29/2016 Duoneb (Ipratropium-Albuterol) Neb TX Nebulizer 1 unit dose given. --14:49 Braulio Davis 14:56 11/29/2016 Labetalol IVP 20 mg given over 5 minute(s) via site #1. Allergies verified and confirmed 5 rights. IV patency established. IV site checked: no pain, redness, or swelling. IV flushed thoroughly pre- and post-medication administration. IVP given by RN. --14:56 Radha Smith R.N. 14:56 11/29/16. BP: 190/108. HR: 108. RR: 18. O2 saturation: 95% on room air. Pain level now: 01/04. --14:59 Radha Smith R.N. Cardiac rhythm: sinus tachycardia. triage technician, pulse oximeter and NIBP monitor placed on patient. Reassurance given. Reassessment after medication administered. He has had no adverse reaction. RESPIRATORY: Breath sounds normal. CVS: Denies chest pain. Normal sinus rhythm noted. Cardiac rhythm: sinus tachycardia. SKIN: Skin is warm and dry. Skin color within normal limits. Two patient identifiers checked. Call light placed in reach. --14:59 Radha Smith R.N. 15:00 11/29/16. BP: 181/103. HR: 84. RR: 16. O2 saturation: 92% on room air. Pain level now: 02/04. --15:01 Radha Smith R.N. Cardiac rhythm: normal sinus rhythm. The patient has had no adverse reaction. RESPIRATORY: Denies difficulty breathing. CVS: Denies chest pain. --15:01 Radha Smith R.N. 15:03 11/29/16. BP: 174/107 (regular adult cuff) taken on the left arm, via an automated monitor, while lying. HR: 79. RR: 18. O2 saturation: 88% on room air. Pain level now: 02/04. Additional comments: placed on O2. --15:04 Radha Smith R.N. Cardiac rhythm: normal sinus rhythm. Oxygen administered by nasal cannula at 2 liters. Monitoring of patient in place. Reassurance given. The patient has had no adverse reaction. Patient identifiers checked. Call light placed in reach. --15:04 Radha Smith R.N. Cardiac rhythm: normal sinus rhythm. --15:05 Radha Smith R.N. 15:05 11/29/16. BP: 167/103 taken on the left arm, via an automated monitor, while lying. HR: 77 (regular). RR: 14. O2 saturation: 93%. Pain level now: 02/04. --15:05 Radha Smith R.N. 15:08 11/29/2016 Labetalol IVP Response: no adverse reaction. --15:08 Radha Smith R.N. 15:19 11/29/2016 Nitroglycerin SL Tablets 0.4 mg given. Allergies verified and confirmed 5 rights. --15:29 aPtricio Mendoza R.N. Blood samples drawn from the right hand with 23g butterfly: blood culture (2nd set). --15:39 Lia Deleon ER Tech1 ( pt to CT with tech, on O2, family at bedside,). --15:49 Patricio Mendoza R.N. 15:40 11/29/2016 Morphine IVP 4 mg given over 2 minute(s) via site #1. Allergies verified, confirmed 5 rights and sedative warning given to the patient. IV patency established. IV site checked: no pain, redness, or swelling. IV flushed thoroughly pre- and post-medication administration. IVP given by RN. --15:50 Radha Smith R.N. 16:05 11/29/16. BP: 184/121. HR: 93. RR: 19. O2 saturation: 89%. End tidal CO2: 21mmHg. Pain level now 0/10. --16:11 Patricio Mendoza R.N. Cardiac rhythm: normal sinus rhythm. triage technician, pulse oximeter, end tidal CO2 monitor and NIBP monitor placed on patient; envelope machine operator- Lead II and V5; monitor alarms on. ( pt moved to room one after CT, MD at bedside explaining results of CT, that plan will be to transfer pt out to another facility. 2nd line being established, pt remaining on monitor, family also at bedside, pt in SR in the 90's on the monitor,). --16:11 Patricio Mendoza R.N. 16:18 11/29/16. BP: 186/124. HR: 98. --16:20 Patricio Mendoza R.N. ( labetalol being given ivp by Tessa ROTH, pt being 1:1 minimum RN to PT, S/O calling pts family to notify them). --16:20 Patricio Mendoza R.N. Cardiac rhythm: no ectopy noted (SR no ectopy noted at this time on monitor). --16:20 Patricio Mendoza R.N. 16:20 11/29/16. BP: 188/121. HR: 94. --16:20 Patricio Mendoza R.N. ( O2 increased to 4L/NC to maintain sats grtr than 94%). --16:22 Patricio Mendoza R.N. 16:21 11/29/16. BP: 175/111. HR: 88. RR: 21. End tidal CO2: 23mmHg. --16:22 Patricio Mendoza R.N. ( pt cont to deny pain, pulses pedal and radial + and regular, BP Q 5 minutes , pt remains in a SR on monitor no ectopy noted). --16:23 Patricio Mendoza R.N. 16:14 11/29/2016 Morphine IVP Response: no adverse reaction pain is gone now. --16:24 Patricio Mendoza R.N. 16:19 11/29/2016 Labetalol IVP 20 mg given. via site #1. Allergies verified and confirmed 5 rights. IV patency established. IV site checked: no pain, redness, or swelling. IV flushed thoroughly pre- and post-medication administration. IVP given by RN. --16:24 Patricio Mendoza R.N. 16:26 11/29/16. BP: 172/110. HR: 84. RR: 19. O2 saturation: 93%. Pain level now 0/10. --16:27 Patricio Mendoza R.N. Cardiac rhythm: (SR). Reassurance given to the patient and patient's family (S/O at bedside calling family). Call light placed in reach. Side rails up x 2. Bed placed in lowest position. Brakes of bed on. Patient waiting for transfer (to [facility]). ( pt has nonproductive cough noted, reports it's been ongoing times 2 days, pt remains pain free, offered event specialist food demonstrator service and declines at this time. on phone with [facility] making arrangements for transfer out). --16:27 Patricio Mendoza R.N. ( Pads placed on pt). --16:30 Patricio Mendoza R.N. ( last PO intake at 1100 today). --16:33 Patricio Mendoza R.N. 16:33 11/29/16. BP: 177/114. HR: 84. O2 saturation: 94%. --16:34 Patricio Mendoza R.N. 16:34 11/29/16. BP: 168/115. HR: 86. RR: 19. O2 saturation: 94% on nasal cannula at 4 liters/minute. End tidal CO2: 25 mmHg. Pain level now: 0/10. Additional comments: 168/115 left arm, 179/110 right arm. --16:37 Patricio Mendoza R.N. Call light placed in reach. Side rails up x 2. Bed placed in lowest position. Brakes of bed on. --16:39 Patricio Mendoza R.N. ( labetalol drip ordered from pharmacy, updated on pts bp and hr following 2nd ivp labetalol). --16:40 Patricio Mendoza R.N. ( order faxed to pharmacy for labetalol gtt). --16:42 Patricio Mendoza R.N. ( daughter arrived at bedside). --16:42 Patricio Mendoza R.N. 16:42 11/29/16. BP: 185/119. HR: 89. RR: 19. Pain level now 0/10. --16:42 Patricio Mendoza R.N. 16:28 11/29/2016 Site #2 started via IV in the right antecubital space with an 18g angiocath. Blood drawn. Labeled in the presence of the patient and sent to the lab. Saline lock flushed with 10 mL saline (T/C sent to lab). --16:53 Patricio Mendoza R.N. Reassurance given. --16:53 Patricio Mendoza R.N. ( spoke with Pharmacist Migdalia to confirm dosing of esmolol). --17:06 Patricio Mendoza R.N. 17:09 11/29/16. BP: 173/110. HR: 86. O2 saturation: 94% on nasal cannula at 4 liters/minute. O2 started via nasal cannula. --17:09 Patricio Mendoza R.N. ( pulse check to extremities, + pedal and radial, pedals marked, eta for airlift 1715- family updated). --17:11 Patricio Mendoza R.N. ( esmolol bolus infusing as ordered, gtt up on pump.). --17:12 Patricio Mendoza R.N. 17:12 11/29/16. BP: 171/108. HR: 85. O2 saturation: 92%. Pain level now 0/10. --17:13 Patricio Mendoza R.N. Cardiac rhythm: no ectopy noted (SR, no ectopy noted on monitor). --17:13 Patricio Mendoza R.N. Reassurance given to the patient and patient's family (spouse Zeenat and daughter Chloe and grandchildren at bedside). Call light placed in reach. Side rails up x 1. Bed placed in lowest position. Brakes of bed on. Care transferred and report given (faxed to [facility] ED by EDT). --17:14 Patricio Mendoza R.N. ( bolus complete, ivp by primary RN Radha). --17:14 Patricio Mendoza R.N. 17: 11/29/16. Reassessment after medication administered. --17:15 Patricio Mendoza R.N. --17:58 Patricio Mendoza R.N. 17:29 11/29/16. BP: 167/116 taken on the left arm, via an automated monitor, while lying. HR: 83. 17:29 11/29/16. BP: 162/114 taken on the right arm, manually, while lying. HR: 82. 17:12 11/29/16. BP: 171/108. HR: 85. O2 saturation: 92%. Pain level now 0/10. 17:09 11/29/16. BP: 173/110. HR: 86. O2 saturation: 94% on nasal cannula at 4 liters/minute. O2 started via nasal cannula. 16:42 11/29/16. BP: 185/119. HR: 89. RR: 19. Pain level now 0/10. 16:34 11/29/16. BP: 168/115. HR: 86. RR: 19. O2 saturation: 94% on nasal cannula at 4 liters/minute. End tidal CO2: 25 mmHg. Pain level now: 0/10. Additional comments: 168/115 left arm, 179/110 right arm. 16:33 11/29/16. BP: 177/114. HR: 84. O2 saturation: 94%. 16:26 11/29/16. BP: 172/110. HR: 84. RR: 19. O2 saturation: 93%. Pain level now . 16:21 11/29/16. BP: 175/111. HR: 88. RR: 21. End tidal CO2: 23mmHg. 16:20 11/29/16. BP: 188/121. HR: 94. 16:18 11/29/16. BP: 186/124. HR: 98. 16:11/29/16. BP: 184/121. HR: 93. RR: 19. O2 saturation: 89%. End tidal CO2: 21mmHg. Pain level now . 15:05 11/29/16. BP: 167/103 taken on the left arm, via an automated monitor, while lying. HR: 77 (regular). RR: 14. O2 saturation: 93%. Pain level now: 02/04. 15:03 11/29/16. BP: 174/107 (regular adult cuff) taken on the left arm, via an automated monitor, while lying. HR: 79. RR: 18. O2 saturation: 88% on room air. Pain level now: 02/04. Additional comments: placed on O2. 15:00 11/29/16. BP: 181/103. HR: 84. RR: 16. O2 saturation: 92% on room air. Pain level now: 02/04. 14:56 11/29/16. BP: 190/108. HR: 108. RR: 18. O2 saturation: 95% on room air. Pain level now: 01/04. 14:33 11/29/16. BP: 196/122. HR: 104. RR: 19 (regular and labored). O2 saturation: 91%. Temp: 98.5 F (oral). Pain level now: 01/04. 14:18 11/29/16. BP: 205/128 (regular adult cuff) taken on the left arm, via an automated monitor, while lying. HR: 111. RR: 14. O2 saturation: 95% on room air. Pain level now: 01/04. --17:58 Patricio Mendoza R.N. 17:31 11/29/16. BP: 158/105. HR: 84. RR: 19. Pain level now: 11/04. Additional comments: t was given a total of 75mcg of fentanyl by ALNW which decreased pts pain upon dc to 310, remained in his back. --18:02 Patricio Mendoza R.N. 17:32 11/29/16. Temp: 98.5 F. --18:05 Patricio eMndoza R.N. 17:02 11/29/2016 Started 2500 mcg of Esmolol (Esmolol HCl) Drip IV in bag #1 91325 mL; bolus of 500 mcg over 1 minute(s) then at 50 mcg/kg/min over 8 hour(s) via site #1 via IV pump. Allergies verified and confirmed 5 rights. IV patency established. IV site checked: no pain, redness, or swelling. IV flushed thoroughly pre- and post-medication administration. --18:09 Radha Smith R.N. 17:16 11/29/16. ( [facility] arrived, RNs Gina and Deepa). --17:50 Patricio Mendoza R.N. 17:18 11/29/16. ( pt began complaining of back pain 01/04, ALNW gave 25mcg fentanyl ivp). --17:52 Patricio Mendoza R.N. 17:23 11/29/16. ( alnw gave 2nd bolus of esmolol- again bilat bps obtained and equal with systolic 160's). --17:54 Patricio Mendoza R.N. 17:29 11/29/16. ( esmolol gtt inc to 100mcg). --18:03 Patricio Mendoza R.N. 17:29 11/29/16. ( pt given 50 mcg ivp fentanyl by ALNW (total of 75mcg) 01/04 "in my back, I think if I could just move it would help"). --18:04 Patricio Mendoza R.N. 17:29 11/29/2016 Started of Esmolol (Esmolol HCl) Drip IV; bolus of 500 mcg over 1 minute(s) then at 100 mcg/kg/min over 8 hour(s) via site #1 via IV pump. Allergies verified and confirmed 5 rights. IV patency established. IV site checked: no pain, redness, or swelling. IV flushed thoroughly pre- and post-medication administration. --18:10 Radha Smith R.N. 17:30 11/29/2016 Started 100 mcg of Esmolol (Esmolol HCl) Drip IV in bag #1 2500 mL; bolus of 500 mcg over 1 minute(s) then at 100 mcg/kg/min over 8 hour(s) via site #1 via IV pump. Allergies verified and confirmed 5 rights. IV patency established. IV site checked: no pain, redness, or swelling. IV flushed thoroughly pre- and post-medication administration. --18:13 Radha Smith R.N. 17:31 11/29/16. ( pt given 1mg of ativan ivp by alnw). --18:05 Patricio Mendoza R.N. 17:32 11/29/16. ( zofran 4mg ivp given by alnw). --18:05 Patricio Mendoza R.N. DISPOSITION / DISCHARGE 17:40 11/29/2016 Site #2 reassessed; patent, infusing well and no signs of infection or infiltration. Line flushed with saline. Good blood return present. --18:14 Radha Smith R.N. 17:40 11/29/2016 Site #1 reassessed; patent, line flushes easily, infusing well and no signs of infection or infiltration. Line flushed with saline. Good blood return present. --18:15 Radha Smith R.N. Cardiac rhythm: normal sinus rhythm. Departure time: 1750 PM. Condition at departure: stable and critical. The goals identified in the patient's plan of care were met. Transferred to [facility]. Summary of care provided to transport team and family via paper and fax (1750 PM). Transported via helicopter by nurse and transport team with monitor, IV, O2 and emergency medications. Report was given to a nurse via a fax. Report included patient's care, treatment, medications, reviewed medication reconcilliation, and condition (including any recent changes or anticipated changes). All questions were answered. Report was acknowledged and care was transferred. (RN Isma/Deepa and Gina -transport team). ( Pt stable, placed on Esmolol for elevated BP's in the 170-180's/ 110 bolus and tolerated well. Transport team at bedside, report given, faxed report sent over, VSS and maintaining). Patient's personal items include: glasses, jewelry, wallet and cell phone; items were placed in belongings bag and given to the spouse. FALL RISK ASSESSMENT: Fall risk assessment completed. No fall risk identified. JEFFREY COMA SCORE: [place] Coma Scale: 15- eyes open spontaneously (4); best verbal response- oriented x 4 (5); best motor response- obeys commands (6). --18:34 Radha Smith R.N. 17:45 11/29/16. BP: 158/105 (regular adult cuff) taken on the left arm, via an automated monitor, while lying. HR: 86 (regular). RR: 16. O2 saturation: 91% on nasal cannula at 6 liters/minute. Temp: 98.5 F (oral). Pain level now: 12/05. --18:34 Radha Smith R.N. Locked/Released at 11/29/2016 18:37 by Radha Smith R.N.
--- NOTE | 2016-11-30 12:25 | ED MAR SUMMARY ---
..... Medication Administration Record [facility] [address] [place] [address] Patient: ROB PIERCE Visit ID: [id number] 61y, M Weight: 102.0 kg Height/Length: 69 in BMI: 33.2 ALLERGIES: No Known Drug Allergy Given 14:49 11/29/2016 Braulio Davis, Medication Administered: DUONEB [NEB TX] (IPRATROPIUM-ALBUTEROL), Dose: 1 unit dose Nebulizer Neb TX. Medication Ordered: DuoNeb Neb Tx 1 unit dose (NOW). Given 14:56 11/29/2016 Radha Smith R.N. Medication Administered: LABETALOL [IVP], Dose: 20 mg IVP over 5 minute(s), Site: #1 left AC. Medication Ordered: Labetalol IV 20 mg (HIGH ALERT MEDICATION, NOW). Given 15:19 11/29/2016 Patricio Mendoza R.N. Medication Administered: NITROGLYCERIN [SL], Dose: 0.4 mg Tablets SL. Medication Ordered: NitroGLYCERIN SL 0.4 mg (once now). Given 15:40 11/29/2016 Radha Smith R.N. Medication Administered: MORPHINE [IVP], Dose: 4 mg IVP over 2 minute(s), Site: #1 left AC. Medication Ordered: Morphine IV 4 mg (HIGH ALERT MEDICATION, NOW). Given 16:19 11/29/2016 Patricio Mendoza R.N. Medication Administered: LABETALOL [IVP], Dose: 20 mg IVP, Site: #1 left AC. Medication Ordered: Labetalol IV 20 mg (HIGH ALERT MEDICATION, NOW). Start 17:02 11/29/2016 Radha Smith R.N. Medication Administered: ESMOLOL [IV DRIP] (ESMOLOL HCL), Dose: 2500 mcg Drip IV over 8 hour(s), Rate: 50 mcg/kg/min, Bolus: 500 mcg over 1 minute(s), Dispensed: 58437 mL bag, Site: #1 left AC. Medication Ordered: Esmolol Drip IV : initial bolus 500 mcg/kg, then 50 mcg/kg/min for as long as needed (NOW, TITRATE) (max drip 300 mcg/kg/min). Start 17:29 11/29/2016 Radha Smith, R.N. Medication Administered: ESMOLOL [IV DRIP] (ESMOLOL HCL), Dose: Drip IV over 8 hour(s), Rate: 100 mcg/kg/min, Bolus: 500 mcg over 1 minute(s), Site: #1 left AC. Medication Ordered: Esmolol Drip IV : initial bolus 500 mcg/kg, then 50 mcg/kg/min for as long as needed (NOW, TITRATE) (max drip 300 mcg/kg/min). Start 17:30 11/29/2016 Radha Smith RAnjelicaN. Medication Administered: ESMOLOL [IV DRIP] (ESMOLOL HCL), Dose: 100 mcg Drip IV over 8 hour(s), Rate: 100 mcg/kg/min, Bolus: 500 mcg over 1 minute(s), Dispensed: 2500 mL bag, Site: #1 left AC. Medication Ordered: Esmolol Drip IV : initial bolus 500 mcg/kg, then 50 mcg/kg/min for as long as needed (NOW, TITRATE) (max drip 300 mcg/kg/min).
--- NOTE | 2016-11-30 12:25 | ED MAR SUMMARY ---
..... Medication Administration Record [facility] [address] [place] [address] Patient: ROB PIERCE Visit ID: [id number] 61y, M Weight: 102.0 kg Height/Length: 69 in BMI: 33.2 ALLERGIES: No Known Drug Allergy Given 14:49 11/29/2016 Braulio Davis, Medication Administered: DUONEB [NEB TX] (IPRATROPIUM-ALBUTEROL), Dose: 1 unit dose Nebulizer Neb TX. Medication Ordered: DuoNeb Neb Tx 1 unit dose (NOW). Given 14:56 11/29/2016 Radha Smith R.N. Medication Administered: LABETALOL [IVP], Dose: 20 mg IVP over 5 minute(s), Site: #1 left AC. Medication Ordered: Labetalol IV 20 mg (HIGH ALERT MEDICATION, NOW). Given 15:19 11/29/2016 Patricio Mendoza R.N. Medication Administered: NITROGLYCERIN [SL], Dose: 0.4 mg Tablets SL. Medication Ordered: NitroGLYCERIN SL 0.4 mg (once now). Given 15:40 11/29/2016 Radha Smith R.N. Medication Administered: MORPHINE [IVP], Dose: 4 mg IVP over 2 minute(s), Site: #1 left AC. Medication Ordered: Morphine IV 4 mg (HIGH ALERT MEDICATION, NOW). Given 16:19 11/29/2016 Patricio Mendoza R.N. Medication Administered: LABETALOL [IVP], Dose: 20 mg IVP, Site: #1 left AC. Medication Ordered: Labetalol IV 20 mg (HIGH ALERT MEDICATION, NOW). Start 17:02 11/29/2016 Radha Smith R.N. Medication Administered: ESMOLOL [IV DRIP] (ESMOLOL HCL), Dose: 2500 mcg Drip IV over 8 hour(s), Rate: 50 mcg/kg/min, Bolus: 500 mcg over 1 minute(s), Dispensed: 13830 mL bag, Site: #1 left AC. Medication Ordered: Esmolol Drip IV : initial bolus 500 mcg/kg, then 50 mcg/kg/min for as long as needed (NOW, TITRATE) (max drip 300 mcg/kg/min). Start 17:29 11/29/2016 Radha Smith, R.N. Medication Administered: ESMOLOL [IV DRIP] (ESMOLOL HCL), Dose: Drip IV over 8 hour(s), Rate: 100 mcg/kg/min, Bolus: 500 mcg over 1 minute(s), Site: #1 left AC. Medication Ordered: Esmolol Drip IV : initial bolus 500 mcg/kg, then 50 mcg/kg/min for as long as needed (NOW, TITRATE) (max drip 300 mcg/kg/min). Start 17:30 11/29/2016 Radha Smith RAnjelicaN. Medication Administered: ESMOLOL [IV DRIP] (ESMOLOL HCL), Dose: 100 mcg Drip IV over 8 hour(s), Rate: 100 mcg/kg/min, Bolus: 500 mcg over 1 minute(s), Dispensed: 2500 mL bag, Site: #1 left AC. Medication Ordered: Esmolol Drip IV : initial bolus 500 mcg/kg, then 50 mcg/kg/min for as long as needed (NOW, TITRATE) (max drip 300 mcg/kg/min).
--- NOTE | 2016-11-30 12:25 | ED DISCHARGE INSTRUCTIONS ---
Patient: ROB PIERCE General Instructions [facility] VisitID: [id number] [address] [place] [address] 61y, M Registration Date/Time: 11/29/2016 Thoracic aortic dissection new-onset congestive heart failure bilateral pulmonary edema hypertensive emergency. (Electronically signed by Jovon Sharma Dr. 11/30/2016 12:25)
--- NOTE | 2016-11-30 12:25 | ED MED RECONCILIATION SUMMARY ---
Patient: ROB PIERCE Medication Reconciliation Report [facility] VisitID: [id number] [address] [place] [address] 61y, M Registration Date/Time: 11/29/2016 Weight: 102.0 kg Height/Length: 69 in. BMI: 33.2 ALLERGIES: No Known Drug Allergy The patient's Home Medications are listed below: NONE. The source(s) of the original Home Medication information: patient The following Medications were given to the patient in the Emergency Department: Duoneb [Neb Tx] Neb TX 1 unit dose, administered: 11/29/2016 2:49:00 PM Labetalol [IVP] IVP 20 mg, administered: 11/29/2016 2:56:00 PM Nitroglycerin [SL] SL 0.4 mg, administered: 11/29/2016 3:19:00 PM Morphine [IVP] IVP 4 mg, administered: 11/29/2016 3:40:00 PM Labetalol [IVP] IVP 20 mg, administered: 11/29/2016 4:19:00 PM Esmolol [IV Drip] Drip IV bolus 500 mcg over 1 minute(s), then 2500 mcg 50 mcg/kg/min, administered: 11/29/2016 5:02:00 PM Esmolol [IV Drip] Drip IV bolus 500 mcg over 1 minute(s), then 100 mcg/kg/min, administered: 11/29/2016 5:29:00 PM Esmolol [IV Drip] Drip IV bolus 500 mcg over 1 minute(s), then 100 mcg 100 mcg/kg/min, administered: 11/29/2016 5:30:00 PM The following Medications were prescribed to the patient: None.
--- NOTE | 2016-11-30 12:25 | ED DISCHARGE INSTRUCTIONS ---
Patient: ROB PIERCE General Instructions [facility] VisitID: [id number] [place] [address] 61y, M Registration Date/Time: 11/29/2016 Thoracic aortic dissection new-onset congestive heart failure bilateral pulmonary edema hypertensive emergency. (Electronically signed by Jovon Sharma Dr. 11/30/2016 12:25)
--- NOTE | 2016-11-30 12:25 | ED MED RECONCILIATION SUMMARY ---
Patient: ROB PIERCE Medication Reconciliation Report [facility] VisitID: [id number] [address] [place] [address] 61y, M Registration Date/Time: 11/29/2016 Weight: 102.0 kg Height/Length: 69 in. BMI: 33.2 ALLERGIES: No Known Drug Allergy The patient's Home Medications are listed below: NONE. The source(s) of the original Home Medication information: patient The following Medications were given to the patient in the Emergency Department: Duoneb [Neb Tx] Neb TX 1 unit dose, administered: 11/29/2016 2:49:00 PM Labetalol [IVP] IVP 20 mg, administered: 11/29/2016 2:56:00 PM Nitroglycerin [SL] SL 0.4 mg, administered: 11/29/2016 3:19:00 PM Morphine [IVP] IVP 4 mg, administered: 11/29/2016 3:40:00 PM Labetalol [IVP] IVP 20 mg, administered: 11/29/2016 4:19:00 PM Esmolol [IV Drip] Drip IV bolus 500 mcg over 1 minute(s), then 2500 mcg 50 mcg/kg/min, administered: 11/29/2016 5:02:00 PM Esmolol [IV Drip] Drip IV bolus 500 mcg over 1 minute(s), then 100 mcg/kg/min, administered: 11/29/2016 5:29:00 PM Esmolol [IV Drip] Drip IV bolus 500 mcg over 1 minute(s), then 100 mcg 100 mcg/kg/min, administered: 11/29/2016 5:30:00 PM The following Medications were prescribed to the patient: None.
== END 2016-11-29 17:50 | disposition short-term general hospital (02) ==
LOC: ED SRH 14:09
DX: I71.01 Dissection of thoracic aorta (principal); I11.0 Hypertensive heart disease with heart failure; I50.9 Heart failure, unspecified; J81.1 Chronic pulmonary edema
CPT/HCPCS: 90001; 90004; 90065; 90074; 90100; 90155; 90616; 91004; 91320; 91556; 92031; 93004; 94060; 95059